=== PATIENT | male | born 1960 | race Caucasian/White ===

== ENCOUNTER 2024-02-24 12:54 | Emergency (ER) | payer MEDICAID ==
[2024-02-24] MEDS ORDERED: Sodium Chloride 0.9% 10 ML Syringe FLUSH PRN (13:01)
[2024-02-24 13:49] LABS: BASOPHILS ABSOLUTE AUTO 0.01 10^3/uL (0.00-0.10); BASOPHILS PERCENT AUTO 0.2 % (0.0-1.0); EOSINOPHILS PERCENT AUTO 2.4 % (1.0-3.0); HEMATOCRIT 36.5 % (40.0-52.0); HEMOGLOBIN 12.6 g/dL (13.0-17.0); IMMATURE GRAN ABSOLUTE AUTO 0.01 10^3/uL (0.00-0.50); IMMATURE GRAN PERCENT AUTO 0.2 % (0.0-5.0); LYMPHOCYTES ABSOLUTE AUTO 1.21 10^3/uL (1.00-4.00); LYMPHOCYTES PERCENT AUTO 28.9 % (20.0-40.0); MEAN CORPUSCULAR HEMOGLOBIN 31.1 pg (27.0-31.0); MEAN CORPUSCULAR HGB CONC 34.5 g/dL (32.0-36.0); MEAN CORPUSCULAR VOLUME 90.1 fL (82.0-92.0); MEAN PLATELET VOLUME 12.1 fL (7.4-10.4); MONOCYTES ABSOLUTE AUTO 0.54 10^3/uL (0.10-0.80); MONOCYTES PERCENT AUTO 12.9 % (2.0-8.0); NEUTROPHILS ABSOLUTE AUTO 2.31 10^3/uL (2.50-7.00); NEUTROPHILS PERCENT AUTO 55.4 % (50.0-70.0); PLATELET COUNT,PLT 70 10^3/uL (150-400); RED BLOOD CELL COUNT 4.05 10^6/uL (4.50-6.00); RED CELL DISTRIBUTION WIDTH 12.2 % (11.5-14.5); WHITE BLOOD CELL COUNT,WBC 4.18 10^3/uL (5.00-10.00)
[2024-02-24 13:52] LABS: APPEARANCE,URINE CLEAR (CLEAR); BILIRUBIN,URINE NEGATIVE (NEGATIVE); COLOR,URINE YELLOW (YELLOW); GLUCOSE,URINE NEGATIVE (NEGATIVE); KETONES,URINE NEGATIVE (NEGATIVE); LEUKOCYTE ESTERASE,URINE NEGATIVE (NEGATIVE); NITRITE,URINE NEGATIVE (NEGATIVE); OCCULT BLOOD,URINE NEGATIVE (NEGATIVE); PROTEIN,URINE NEGATIVE (NEGATIVE); UROBILINOGEN,URINE 0.2 E.U./dL (0.2-1.0)
[2024-02-24 14:02] LABS: AMPHETAMINES SCREEN, URINE NEGATIVE (NEGATIVE); BARBITURATE SCREEN,URINE NEGATIVE (NEGATIVE); BENZODIAZEPINES SCREEN,URINE NEGATIVE (NEGATIVE); COCAINE METABOLITES,URINE NEGATIVE (NEGATIVE); METHADONE SCREEN, URINE NEGATIVE (NEGATIVE); METHAMPHETAMINES SCREEN, URINE NEGATIVE (NEGATIVE); OXYCODONE SCREEN,URINE NEGATIVE (NEGATIVE); PCP SCREEN,URINE NEGATIVE (NEGATIVE); PROPOXYPHENE SCREEN,URINE NEGATIVE (NEGATIVE); TCA SCREEN,URINE POSITIVE (NEGATIVE); THC SCREEN,URINE 50 NG/ML NEGATIVE (NEGATIVE)
[2024-02-24 14:11] LABS: ALANINE AMINOTRANSFERASE,ALT 20 U/L (14-63); ALBUMIN 3.21 g/dL (3.40-5.00); ALKALINE PHOSPHATASE 81 U/L (46-116); AMYLASE 128 U/L (25-125); ANION GAP 14.4 mmol/L (5-15); ASPARTATE AMNIOTRANSFERASE,AST 25 U/L (15-37); BILIRUBIN TOTAL 1.5 mg/dL (0.2-1.0); BLOOD UREA NITROGEN,BUN 24 mg/dL (7-18); CALCIUM 9.3 mg/dL (8.7-10.3); CARBON DIOXIDE,CO2 25.4 mmol/L (21.0-32.0); CHLORIDE,CL 107 mmol/L (98-107); EST CRCL DRUG DOSING (CG) 84.29 mL/min; GLUCOSE RANDOM 137 mg/dL (70-140); LACTIC ACID 2.4 mmol/L (0.4-2.0); LIPASE 29 U/L (16-77); POTASSIUM,K 3.8 mmol/L (3.5-5.1); PROTEIN TOTAL,TP 6.7 g/dL (6.4-8.2); SODIUM,NA 143 mmol/L (136-145)
[2024-02-24 14:15] LABS: ESTIMATED GFR 76 mL/min (>=60)
[2024-02-24 14:24] LABS: B-TYPE NATRIURETIC PEPTIDE,BNP < 5 pg/mL (0-100)
[2024-02-24] MEDS: Sodium Chloride 0.9% 1,000 ML IV SCH (14:26)
== END 2024-02-24 16:40 ==
LOC: KA.ED 12:54
DX: D69.6 Thrombocytopenia, unspecified (principal); E11.40 Type 2 diabetes mellitus with diabetic neuropathy, unspecified; E51.2 Wernicke's encephalopathy; E78.00 Pure hypercholesterolemia, unspecified; I10 Essential (primary) hypertension; E66.9 Obesity, unspecified; Z79.4 Long term (current) use of insulin; Z79.899 Other long term (current) drug therapy; Z79.84 Long term (current) use of oral hypoglycemic drugs; Z68.39 Body mass index [BMI] 39.0-39.9, adult
CPT/HCPCS: 36415; 70450; 71045; 80053; 80305-QW; 81003; 82140; 82150; 83605; 83690; 83880; 84484; 85025; 87040; 93010; 96360; 99284; 99285-25; C1758; J7030

== ENCOUNTER 2024-03-23 10:30 | Emergency (ER) | payer MEDICAID ==
[2024-03-23 11:17] LABS: BASOPHILS ABSOLUTE AUTO 0.01 10^3/uL (0.00-0.10); BASOPHILS PERCENT AUTO 0.2 % (0.0-1.0); EOSINOPHILS ABSOLUTE AUTO 0.02 10^3/uL (0.10-0.30); EOSINOPHILS PERCENT AUTO 0.4 % (1.0-3.0); HEMATOCRIT 38.7 % (40.0-52.0); HEMOGLOBIN 13.8 g/dL (13.0-17.0); IMMATURE GRAN ABSOLUTE AUTO 0.02 10^3/uL (0.00-0.50); IMMATURE GRAN PERCENT AUTO 0.4 % (0.0-5.0); LYMPHOCYTES ABSOLUTE AUTO 0.62 10^3/uL (1.00-4.00); LYMPHOCYTES PERCENT AUTO 12.2 % (20.0-40.0); MEAN CORPUSCULAR HEMOGLOBIN 31.2 pg (27.0-31.0); MEAN CORPUSCULAR HGB CONC 35.7 g/dL (32.0-36.0); MEAN CORPUSCULAR VOLUME 87.6 fL (82.0-92.0); MEAN PLATELET VOLUME 11.8 fL (7.4-10.4); MONOCYTES ABSOLUTE AUTO 0.39 10^3/uL (0.10-0.80); MONOCYTES PERCENT AUTO 7.7 % (2.0-8.0); NEUTROPHILS ABSOLUTE AUTO 4.02 10^3/uL (2.50-7.00); NEUTROPHILS PERCENT AUTO 79.1 % (50.0-70.0); PLATELET COUNT,PLT 66 10^3/uL (150-400); RED BLOOD CELL COUNT 4.42 10^6/uL (4.50-6.00); WHITE BLOOD CELL COUNT,WBC 5.08 10^3/uL (5.00-10.00)
[2024-03-23 11:34] LABS: ALANINE AMINOTRANSFERASE,ALT 21 U/L (14-63); ALBUMIN 3.41 g/dL (3.40-5.00); ALKALINE PHOSPHATASE 87 U/L (46-116); ANION GAP 18.9 mmol/L (5-15); ASPARTATE AMNIOTRANSFERASE,AST 19 U/L (15-37); BILIRUBIN TOTAL 1.3 mg/dL (0.2-1.0); BLOOD UREA NITROGEN,BUN 28 mg/dL (7-18); C-REACTIVE PROTEIN < 0.50 mg/dL (0.00-0.50); CALCIUM 9.8 mg/dL (8.7-10.3); CARBON DIOXIDE,CO2 19.6 mmol/L (21.0-32.0); CHLORIDE,CL 105 mmol/L (98-107); CREATININE 1.29 mg/dL (0.51-1.17); ESTIMATED GFR 63 mL/min (>=60); GLUCOSE RANDOM 204 mg/dL (70-140); POTASSIUM,K 4.5 mmol/L (3.5-5.1); PROTEIN TOTAL,TP 7.3 g/dL (6.4-8.2); SODIUM,NA 139 mmol/L (136-145)
[2024-03-23 12:34] LABS: INR 1.1 (0.9-1.1); PROTHROMBIN TIME 11.6 SEC (9.3-12.2)
[2024-03-23] MEDS: Sodium Chloride 0.9% 1,000 ML IV ONE (13:58)
== END 2024-03-23 14:18 ==
LOC: KA.ED 10:30
DX: E51.2 Wernicke's encephalopathy (principal); R20.9 Unspecified disturbances of skin sensation; E72.20 Disorder of urea cycle metabolism, unspecified; R41.82 Altered mental status, unspecified; I10 Essential (primary) hypertension; E78.00 Pure hypercholesterolemia, unspecified; E11.9 Type 2 diabetes mellitus without complications; Z79.899 Other long term (current) drug therapy; Z79.4 Long term (current) use of insulin; Z79.84 Long term (current) use of oral hypoglycemic drugs
CPT/HCPCS: 36415; 70450; 71045; 80053; 82140; 85025; 85610; 85730; 86140; 99284; 99285; J7030

== ENCOUNTER 2024-05-25 22:04 | Inpatient (IN) | payer MEDICAID ==
[2024-05-25] MEDS: Sodium Chloride 0.9% 10 ML Syringe FLUSH PRN (22:30)
[2024-05-25 22:43] LABS: BASOPHILS ABSOLUTE AUTO 0.02 10^3/uL (0.00-0.10); BASOPHILS PERCENT AUTO 0.4 % (0.0-1.0); EOSINOPHILS ABSOLUTE AUTO 0.09 10^3/uL (0.10-0.30); HEMOGLOBIN 13.7 g/dL (13.0-17.0); IMMATURE GRAN ABSOLUTE AUTO 0.05 10^3/uL (0.00-0.50); IMMATURE GRAN PERCENT AUTO 1.1 % (0.0-5.0); LYMPHOCYTES ABSOLUTE AUTO 1.14 10^3/uL (1.00-4.00); LYMPHOCYTES PERCENT AUTO 25.6 % (20.0-40.0); MEAN CORPUSCULAR HEMOGLOBIN 32.4 pg (27.0-31.0); MEAN CORPUSCULAR HGB CONC 35.1 g/dL (32.0-36.0); MEAN CORPUSCULAR VOLUME 92.2 fL (82.0-92.0); MEAN PLATELET VOLUME 12.2 fL (7.4-10.4); MONOCYTES ABSOLUTE AUTO 0.47 10^3/uL (0.10-0.80); MONOCYTES PERCENT AUTO 10.5 % (2.0-8.0); NEUTROPHILS ABSOLUTE AUTO 2.69 10^3/uL (2.50-7.00); NEUTROPHILS PERCENT AUTO 60.4 % (50.0-70.0); PLATELET COUNT,PLT 97 10^3/uL (150-400); RED BLOOD CELL COUNT 4.23 10^6/uL (4.50-6.00); RED CELL DISTRIBUTION WIDTH 12.7 % (11.5-14.5); WHITE BLOOD CELL COUNT,WBC 4.46 10^3/uL (5.00-10.00)
[2024-05-25] MEDS: Sodium Chloride 0.9% 500 ML IV SCH (22:46)
[2024-05-25 22:49] LABS: APPEARANCE,URINE CLEAR (CLEAR); BILIRUBIN,URINE NEGATIVE (NEGATIVE); COLOR,URINE DARK YELLOW (YELLOW); GLUCOSE,URINE NEGATIVE (NEGATIVE); KETONES,URINE 15 mg/dL (NEGATIVE); LEUKOCYTE ESTERASE,URINE NEGATIVE (NEGATIVE); NITRITE,URINE NEGATIVE (NEGATIVE); OCCULT BLOOD,URINE NEGATIVE (NEGATIVE); PROTEIN,URINE NEGATIVE (NEGATIVE)
[2024-05-25 23:15] LABS: ALANINE AMINOTRANSFERASE,ALT 18 U/L (14-63); ALBUMIN 3.35 g/dL (3.40-5.00); ALKALINE PHOSPHATASE 86 U/L (46-116); ANION GAP 17.9 mmol/L (5-15); ASPARTATE AMNIOTRANSFERASE,AST 14 U/L (15-37); BILIRUBIN TOTAL 1.4 mg/dL (0.2-1.0); BLOOD UREA NITROGEN,BUN 16 mg/dL (7-18); CALCIUM 9.5 mg/dL (8.7-10.3); CARBON DIOXIDE,CO2 21.1 mmol/L (21.0-32.0); CHLORIDE,CL 104 mmol/L (98-107); CREATININE 0.98 mg/dL (0.51-1.17); GLUCOSE RANDOM 169 mg/dL (70-140); SODIUM,NA 139 mmol/L (136-145)
[2024-05-25 23:16] LABS: ESTIMATED GFR 88 mL/min (>=60)
[2024-05-26] MEDS ORDERED: Ondansetron 4 MG Tab.DIS PO PRN (00:03)
[2024-05-26] MEDS ORDERED: Acetaminophen 325 MG Tab PO PRN (00:03)
[2024-05-26 00:11] LABS: HCO3 ARTERIAL,POC 16.9 mmol/L (21-28); O2 SATURATION ARTERIAL,POC 97.5 % (94-98); PCO2 ARTERIAL,POC 29 mmHg (35-48); PH ARTERIAL,POC 7.37 pH (7.35-7.45); PO2 ARTERIAL,POC 98 mmHg (83-108)
[2024-05-26] MEDS: Sodium Chloride 0.9% 1,000 ML IV ONE (00:33)
[2024-05-26] MEDS: metroNIDAZOLE 500 MG Tab PO SCH (00:33)
[2024-05-26] MEDS ORDERED: Glucagon,Human Recombinant 1 MG Vial IM PRN (01:01)
[2024-05-26] MEDS ORDERED: 50% Dextrose in Water 50 ML Syringe IVPUSH PRN (01:01)
[2024-05-26] MEDS: Lactulose Soln 10 GM/15 ML 30 ML UD Cup PO SCH ×4 (01:04→17:48)
[2024-05-26 07:23] LABS: BASOPHILS ABSOLUTE AUTO 0.02 10^3/uL (0.00-0.10); BASOPHILS PERCENT AUTO 0.5 % (0.0-1.0); EOSINOPHILS ABSOLUTE AUTO 0.15 10^3/uL (0.10-0.30); EOSINOPHILS PERCENT AUTO 3.5 % (1.0-3.0); HEMATOCRIT 34.9 % (40.0-52.0); HEMOGLOBIN 12.1 g/dL (13.0-17.0); IMMATURE GRAN ABSOLUTE AUTO 0.07 10^3/uL (0.00-0.50); IMMATURE GRAN PERCENT AUTO 1.6 % (0.0-5.0); LYMPHOCYTES PERCENT AUTO 30.2 % (20.0-40.0); MEAN CORPUSCULAR HEMOGLOBIN 32.4 pg (27.0-31.0); MEAN CORPUSCULAR HGB CONC 34.7 g/dL (32.0-36.0); MEAN CORPUSCULAR VOLUME 93.6 fL (82.0-92.0); MEAN PLATELET VOLUME 11.1 fL (7.4-10.4); MONOCYTES ABSOLUTE AUTO 0.47 10^3/uL (0.10-0.80); MONOCYTES PERCENT AUTO 10.9 % (2.0-8.0); NEUTROPHILS PERCENT AUTO 53.3 % (50.0-70.0); PLATELET COUNT,PLT 63 10^3/uL (150-400); RED BLOOD CELL COUNT 3.73 10^6/uL (4.50-6.00); RED CELL DISTRIBUTION WIDTH 12.6 % (11.5-14.5); WHITE BLOOD CELL COUNT,WBC 4.31 10^3/uL (5.00-10.00)
[2024-05-26 07:41] LABS: ALBUMIN 2.97 g/dL (3.40-5.00); ANION GAP 14.3 mmol/L (5-15); BILIRUBIN TOTAL 1.6 mg/dL (0.2-1.0); CALCIUM 8.9 mg/dL (8.7-10.3); CARBON DIOXIDE,CO2 24.5 mmol/L (21.0-32.0); CREATININE 0.88 mg/dL (0.51-1.17); EST CRCL DRUG DOSING (CG) 105.36 mL/min; INR 1.1 (0.9-1.1); POTASSIUM,K 3.8 mmol/L (3.5-5.1); PROTEIN TOTAL,TP 6.2 g/dL (6.4-8.2); PROTHROMBIN TIME 11.7 SEC (9.3-12.2)
[2024-05-26] MEDS: Insulin Lispro 100 Unit/ML 3 ML KwikPen SUBCUT SCH (08:03)
[2024-05-26] MEDS: Spironolactone 25 MG Tab PO SCH (08:30)
[2024-05-26] MEDS: Famotidine 20 MG Tab PO SCH (08:30)
[2024-05-26] MEDS: Topiramate 25 MG Tab PO SCH (08:30)
[2024-05-26] MEDS: Thiamine 100 MG Tab PO SCH (08:30)
[2024-05-26] MEDS: Folic Acid 1 MG Tab PO SCH (08:30)
[2024-05-26] MEDS: Cyanocobalamin (Vitamin B12) 500 MCG Tab PO SCH (08:30)
[2024-05-26] MEDS: Insulin Glargine,Hum.Rec.Anlog 100 UNIT/ML 3 ML Pen SUBCUT SCH (08:31)
[2024-05-26] MEDS: Ketoconazole 15 GM TUBE TOP SCH (08:31)
[2024-05-26] MEDS: TRINTELLIX 10 MG PO SCH (10:12)
[2024-05-26] MEDS: XIFAXAN 550 MG PO SCH (10:12)
[2024-05-26] MEDS ORDERED: Lactulose Soln 10 GM/15 ML 30 ML UD Cup PO SCH (10:42)
[2024-05-26] MEDS: Lactulose Soln 10 GM/15 ML 30 ML UD Cup PO ONE (14:20)
[2024-05-26] MEDS: Bisacodyl 10 MG Supp RECTAL ONE (14:20)
[2024-05-27 12:27] VITALS: BP 106/49; PULSE 92
== END 2024-05-27 13:21 | disposition home or self-care (01) | DRG 441 ==
LOC: KA.ED 22:04 → KA.MS 05-26 00:03
PROVIDERS: ADMIT Physician Assistant Medical; ATTEND Hospitalist
DX: K76.82 Hepatic encephalopathy (principal); G93.41 Metabolic encephalopathy; K70.31 Alcoholic cirrhosis of liver with ascites; R74.02 Elevation of levels of lactic acid dehydrogenase [LDH]; I10 Essential (primary) hypertension; E11.9 Type 2 diabetes mellitus without complications; E86.0 Dehydration; E66.9 Obesity, unspecified; F41.0 Panic disorder [episodic paroxysmal anxiety]; D64.9 Anemia, unspecified; Z79.891 Long term (current) use of opiate analgesic; E78.00 Pure hypercholesterolemia, unspecified; E11.42 Type 2 diabetes mellitus with diabetic polyneuropathy; Z79.4 Long term (current) use of insulin; Z98.49 Cataract extraction status, unspecified eye; Z79.01 Long term (current) use of anticoagulants; Z79.84 Long term (current) use of oral hypoglycemic drugs; Z79.899 Other long term (current) drug therapy; Z68.35 Body mass index [BMI] 35.0-35.9, adult
CPT/HCPCS: 36415; 36600; 71045; 80053; 81003; 82140; 82803; 82947; 83605; 85025; 85610; 96360; 99284; 99285-25; A9270-GY; C1758; J1815-GY; J3490; J7030; J7040; Q3014

== ENCOUNTER 2024-06-16 05:32 | Emergency (ER) | payer MEDICAID ==
[2024-06-16] MEDS ORDERED: Sodium Chloride 0.9% 10 ML Syringe FLUSH PRN (05:42)
[2024-06-16 05:53] LABS: BASOPHILS ABSOLUTE AUTO 0.02 10^3/uL (0.00-0.10); BASOPHILS PERCENT AUTO 0.5 % (0.0-1.0); EOSINOPHILS ABSOLUTE AUTO 0.09 10^3/uL (0.10-0.30); EOSINOPHILS PERCENT AUTO 2.3 % (1.0-3.0); HEMATOCRIT 35.6 % (40.0-52.0); HEMOGLOBIN 12.7 g/dL (13.0-17.0); IMMATURE GRAN ABSOLUTE AUTO 0.07 10^3/uL (0.00-0.50); IMMATURE GRAN PERCENT AUTO 1.8 % (0.0-5.0); LYMPHOCYTES ABSOLUTE AUTO 0.81 10^3/uL (1.00-4.00); LYMPHOCYTES PERCENT AUTO 20.4 % (20.0-40.0); MEAN CORPUSCULAR HEMOGLOBIN 33.4 pg (27.0-31.0); MEAN CORPUSCULAR HGB CONC 35.7 g/dL (32.0-36.0); MEAN CORPUSCULAR VOLUME 93.7 fL (82.0-92.0); MEAN PLATELET VOLUME 11.5 fL (7.4-10.4); MONOCYTES ABSOLUTE AUTO 0.42 10^3/uL (0.10-0.80); MONOCYTES PERCENT AUTO 10.6 % (2.0-8.0); NEUTROPHILS ABSOLUTE AUTO 2.57 10^3/uL (2.50-7.00); NEUTROPHILS PERCENT AUTO 64.4 % (50.0-70.0); RED CELL DISTRIBUTION WIDTH 12.8 % (11.5-14.5); WHITE BLOOD CELL COUNT,WBC 3.98 10^3/uL (5.00-10.00)
[2024-06-16 06:04] LABS: CARBON DIOXIDE,CO2 18.2 mmol/L (21.0-32.0); CREATININE 0.87 mg/dL (0.51-1.17); EST CRCL DRUG DOSING (CG) 106.57 mL/min; POTASSIUM,K 4.2 mmol/L (3.5-5.1); PROTEIN TOTAL,TP 6.5 g/dL (6.4-8.2)
[2024-06-16 06:14] LABS: PLATELET COUNT,PLT 66 10^3/uL (150-400)
[2024-06-16] MEDS: Ondansetron 4 MG/2 ML SDV IVPUSH ONE (06:17)
[2024-06-16] MEDS: Sodium Chloride 0.9% 1,000 ML IV ONE ×2 (06:20→11:26)
[2024-06-16 06:41] LABS: CORONAVIRUS COVID-19 NAA NEGATIVE (NEGATIVE); INFLUENZA A NAA NEGATIVE (NEGATIVE); INFLUENZA B NAA NEGATIVE (NEGATIVE); RESPIRATORY SYNCYTIAL VIR NAA NEGATIVE (NEGATIVE)
[2024-06-16] MEDS: Insulin Regular, Human 100 Units/ML 10 ML Vial IVPUSH ONE (06:43)
[2024-06-16 07:32] LABS: MAGNESIUM 1.7 mg/dL (1.8-2.4); PHOSPHORUS 4.6 mg/dL (2.6-4.7)
[2024-06-16] MEDS: Insulin Regular in 0.9 % NACL 100 ML IV SCH (07:53)
[2024-06-16 07:54] LABS: HCO3 ARTERIAL,POC 19.1 mmol/L (21-28); O2 SATURATION ARTERIAL,POC 97.8 % (94-98); PCO2 ARTERIAL,POC 32 mmHg (35-48); PH ARTERIAL,POC 7.39 pH (7.35-7.45); PO2 ARTERIAL,POC 101 mmHg (83-108)
[2024-06-16 08:11] LABS: APPEARANCE,URINE CLEAR (CLEAR); BILIRUBIN,URINE NEGATIVE (NEGATIVE); COLOR,URINE YELLOW (YELLOW); GLUCOSE,URINE >=1000 mg/dL (NEGATIVE); KETONES,URINE TRACE mg/dL (NEGATIVE); LEUKOCYTE ESTERASE,URINE NEGATIVE (NEGATIVE); NITRITE,URINE NEGATIVE (NEGATIVE); OCCULT BLOOD,URINE NEGATIVE (NEGATIVE); PROTEIN,URINE NEGATIVE (NEGATIVE)
[2024-06-16] MEDS: Sodium Chloride 0.9% 1,000 ML IV SCH (08:58)
[2024-06-16] MEDS: Lactulose Soln 10 GM/15 ML 30 ML UD Cup PO ONE (11:31)
== END 2024-06-16 14:00 ==
LOC: KA.ED 05:32
DX: E11.65 Type 2 diabetes mellitus with hyperglycemia (principal); E86.0 Dehydration; E51.2 Wernicke's encephalopathy; K76.82 Hepatic encephalopathy; D69.6 Thrombocytopenia, unspecified; E72.20 Disorder of urea cycle metabolism, unspecified; I10 Essential (primary) hypertension; E78.00 Pure hypercholesterolemia, unspecified; E11.42 Type 2 diabetes mellitus with diabetic polyneuropathy; E66.9 Obesity, unspecified; Z79.899 Other long term (current) drug therapy; Z79.84 Long term (current) use of oral hypoglycemic drugs; Z79.4 Long term (current) use of insulin; Z68.36 Body mass index [BMI] 36.0-36.9, adult
CPT/HCPCS: 0241U; 36415; 36600; 71045; 80053; 81003; 82140; 82803; 82947; 83605; 83735; 84100; 84484; 85025; 93010; 96361; 96374; 99284; 99285-25; A9270-GY; J1815-GY; J2405; J7030

== ENCOUNTER 2024-07-06 20:53 | Emergency (ER) | payer MEDICAID ==
[2024-07-06] MEDS: Sodium Chloride 0.9% 10 ML Syringe FLUSH PRN (21:09)
[2024-07-06] MEDS: Sodium Chloride 0.9% 1,000 ML IV ONE ×2 (21:17→22:43)
[2024-07-06 21:30] LABS: BASOPHILS ABSOLUTE AUTO 0.02 10^3/uL (0.00-0.10); BASOPHILS PERCENT AUTO 0.4 % (0.0-1.0); EOSINOPHILS ABSOLUTE AUTO 0.07 10^3/uL (0.10-0.30); EOSINOPHILS PERCENT AUTO 1.4 % (1.0-3.0); HEMATOCRIT 37.7 % (40.0-52.0); HEMOGLOBIN 13.6 g/dL (13.0-17.0); IMMATURE GRAN ABSOLUTE AUTO 0.06 10^3/uL (0.00-0.50); IMMATURE GRAN PERCENT AUTO 1.2 % (0.0-5.0); LYMPHOCYTES PERCENT AUTO 17.6 % (20.0-40.0); MEAN CORPUSCULAR HEMOGLOBIN 33.3 pg (27.0-31.0); MEAN CORPUSCULAR HGB CONC 36.1 g/dL (32.0-36.0); MEAN CORPUSCULAR VOLUME 92.2 fL (82.0-92.0); MEAN PLATELET VOLUME 11.4 fL (7.4-10.4); MONOCYTES ABSOLUTE AUTO 0.65 10^3/uL (0.10-0.80); MONOCYTES PERCENT AUTO 12.7 % (2.0-8.0); NEUTROPHILS PERCENT AUTO 66.7 % (50.0-70.0); PLATELET COUNT,PLT 76 10^3/uL (150-400); RED BLOOD CELL COUNT 4.09 10^6/uL (4.50-6.00); RED CELL DISTRIBUTION WIDTH 12.5 % (11.5-14.5)
[2024-07-06 21:48] LABS: ALANINE AMINOTRANSFERASE,ALT 26 U/L (14-63); ALBUMIN 3.29 g/dL (3.40-5.00); ALKALINE PHOSPHATASE 83 U/L (46-116); ANION GAP 23.1 mmol/L (5-15); ASPARTATE AMNIOTRANSFERASE,AST 17 U/L (15-37); BLOOD UREA NITROGEN,BUN 13 mg/dL (7-18); CALCIUM 9.1 mg/dL (8.7-10.3); CARBON DIOXIDE,CO2 17.9 mmol/L (21.0-32.0); CHLORIDE,CL 100 mmol/L (98-107); CREATININE 0.94 mg/dL (0.51-1.17); ESTIMATED GFR 92 mL/min (>=60); GLUCOSE RANDOM 164 mg/dL (70-140); PROTEIN TOTAL,TP 6.9 g/dL (6.4-8.2); SODIUM,NA 137 mmol/L (136-145)
[2024-07-06 22:07] LABS: APPEARANCE,URINE CLEAR (CLEAR); BILIRUBIN,URINE NEGATIVE (NEGATIVE); COLOR,URINE DARK YELLOW (YELLOW); GLUCOSE,URINE NEGATIVE (NEGATIVE); KETONES,URINE 15 mg/dL (NEGATIVE); LEUKOCYTE ESTERASE,URINE NEGATIVE (NEGATIVE); NITRITE,URINE NEGATIVE (NEGATIVE); OCCULT BLOOD,URINE TRACE-INTACT (NEGATIVE); PH,URINE 5.5 (5.0-9.0); PROTEIN,URINE 30 mg/dL (NEGATIVE); UROBILINOGEN,URINE 0.2 E.U./dL (0.2-1.0)
[2024-07-06 22:18] LABS: BACTERIA,URINE RARE /HPF (NONE TO FEW); EPITHELIAL CELLS,URINE RARE /LPF; HYALINE CASTS,URINE FEW; MUCUS,URINE FEW /LPF (NEGATIVE); RBC,URINE 0-5 /HPF (0-5); WBC,URINE 0-5 /HPF (0-5)
== END 2024-07-07 00:53 ==
LOC: KA.ED 20:53
DX: I95.9 Hypotension, unspecified (principal); E86.0 Dehydration; E72.20 Disorder of urea cycle metabolism, unspecified; E86.1 Hypovolemia; I10 Essential (primary) hypertension; E78.00 Pure hypercholesterolemia, unspecified; E11.40 Type 2 diabetes mellitus with diabetic neuropathy, unspecified; Z79.4 Long term (current) use of insulin; Z79.899 Other long term (current) drug therapy; Z79.84 Long term (current) use of oral hypoglycemic drugs
CPT/HCPCS: 36415; 71045; 80053; 81001; 82140; 83605; 85025; 93010; 96360; 96361; 99284; 99285-25; J3490; J7030; Q3014

== ENCOUNTER 2024-07-08 14:55 | Emergency (ER) | payer MEDICAID ==
[2024-07-08 15:36] LABS: BASOPHILS ABSOLUTE AUTO 0.02 10^3/uL (0.00-0.10); BASOPHILS PERCENT AUTO 0.5 % (0.0-1.0); EOSINOPHILS ABSOLUTE AUTO 0.09 10^3/uL (0.10-0.30); EOSINOPHILS PERCENT AUTO 2.1 % (1.0-3.0); HEMATOCRIT 36.5 % (40.0-52.0); IMMATURE GRAN ABSOLUTE AUTO 0.05 10^3/uL (0.00-0.50); IMMATURE GRAN PERCENT AUTO 1.1 % (0.0-5.0); LYMPHOCYTES ABSOLUTE AUTO 1.04 10^3/uL (1.00-4.00); LYMPHOCYTES PERCENT AUTO 23.7 % (20.0-40.0); MEAN CORPUSCULAR HEMOGLOBIN 33.2 pg (27.0-31.0); MEAN CORPUSCULAR HGB CONC 35.6 g/dL (32.0-36.0); MEAN CORPUSCULAR VOLUME 93.4 fL (82.0-92.0); MEAN PLATELET VOLUME 11.5 fL (7.4-10.4); MONOCYTES ABSOLUTE AUTO 0.56 10^3/uL (0.10-0.80); MONOCYTES PERCENT AUTO 12.8 % (2.0-8.0); NEUTROPHILS ABSOLUTE AUTO 2.63 10^3/uL (2.50-7.00); NEUTROPHILS PERCENT AUTO 59.8 % (50.0-70.0); PLATELET COUNT,PLT 66 10^3/uL (150-400); RED BLOOD CELL COUNT 3.91 10^6/uL (4.50-6.00); RED CELL DISTRIBUTION WIDTH 12.6 % (11.5-14.5); WHITE BLOOD CELL COUNT,WBC 4.39 10^3/uL (5.00-10.00)
[2024-07-08 16:00] LABS: ALANINE AMINOTRANSFERASE,ALT 24 U/L (14-63); ALBUMIN 3.17 g/dL (3.40-5.00); ALKALINE PHOSPHATASE 87 U/L (46-116); ANION GAP 17.6 mmol/L (5-15); ASPARTATE AMNIOTRANSFERASE,AST 16 U/L (15-37); BILIRUBIN TOTAL 2.1 mg/dL (0.2-1.0); BLOOD UREA NITROGEN,BUN 15 mg/dL (7-18); CALCIUM 9.2 mg/dL (8.7-10.3); CARBON DIOXIDE,CO2 22.2 mmol/L (21.0-32.0); CHLORIDE,CL 104 mmol/L (98-107); CREATININE 1.01 mg/dL (0.51-1.17); GLUCOSE RANDOM 221 mg/dL (70-140); POTASSIUM,K 3.8 mmol/L (3.5-5.1); PROTEIN TOTAL,TP 6.6 g/dL (6.4-8.2); SODIUM,NA 140 mmol/L (136-145)
[2024-07-08 16:01] LABS: ESTIMATED GFR 85 mL/min (>=60)
[2024-07-08] MEDS: Sodium Chloride 0.9% 1,000 ML IV ONE (16:20)
[2024-07-08] MEDS: Lactulose Soln 10 GM/15 ML 30 ML UD Cup PO ONE (19:48)
== END 2024-07-08 22:04 ==
LOC: SUPCPDRO 14:55 → KA.ED 14:55
DX: R11.2 Nausea with vomiting, unspecified (principal); K76.82 Hepatic encephalopathy; K72.10 Chronic hepatic failure without coma; I10 Essential (primary) hypertension; E11.40 Type 2 diabetes mellitus with diabetic neuropathy, unspecified; E66.9 Obesity, unspecified; Z79.4 Long term (current) use of insulin; Z79.84 Long term (current) use of oral hypoglycemic drugs; Z79.899 Other long term (current) drug therapy
CPT/HCPCS: 36415; 80053; 82140; 85025; 96360; 96361; 99284; 99284-25; A9270-GY; J7030

== ENCOUNTER 2024-07-15 10:02 | Emergency (ER) | payer MEDICAID ==
[2024-07-15] MEDS: Sodium Chloride 0.9% 1,000 ML IV ONE ×3 (10:13→12:47)
[2024-07-15 10:27] LABS: BASOPHILS ABSOLUTE AUTO 0.02 10^3/uL (0.00-0.10); BASOPHILS PERCENT AUTO 0.4 % (0.0-1.0); EOSINOPHILS ABSOLUTE AUTO 0.15 10^3/uL (0.10-0.30); EOSINOPHILS PERCENT AUTO 2.9 % (1.0-3.0); HEMOGLOBIN 12.8 g/dL (13.0-17.0); IMMATURE GRAN ABSOLUTE AUTO 0.06 10^3/uL (0.00-0.50); IMMATURE GRAN PERCENT AUTO 1.2 % (0.0-5.0); LYMPHOCYTES ABSOLUTE AUTO 1.49 10^3/uL (1.00-4.00); LYMPHOCYTES PERCENT AUTO 28.6 % (20.0-40.0); MEAN CORPUSCULAR HEMOGLOBIN 33.1 pg (27.0-31.0); MEAN CORPUSCULAR HGB CONC 35.6 g/dL (32.0-36.0); MEAN PLATELET VOLUME 10.9 fL (7.4-10.4); MONOCYTES ABSOLUTE AUTO 0.67 10^3/uL (0.10-0.80); MONOCYTES PERCENT AUTO 12.9 % (2.0-8.0); NEUTROPHILS ABSOLUTE AUTO 2.82 10^3/uL (2.50-7.00); PLATELET COUNT,PLT 66 10^3/uL (150-400); RED BLOOD CELL COUNT 3.87 10^6/uL (4.50-6.00); RED CELL DISTRIBUTION WIDTH 12.7 % (11.5-14.5); WHITE BLOOD CELL COUNT,WBC 5.21 10^3/uL (5.00-10.00)
[2024-07-15 10:43] LABS: ALANINE AMINOTRANSFERASE,ALT 20 U/L (14-63); ALBUMIN 3.03 g/dL (3.40-5.00); ALKALINE PHOSPHATASE 85 U/L (46-116); ANION GAP 16.6 mmol/L (5-15); ASPARTATE AMNIOTRANSFERASE,AST 14 U/L (15-37); BLOOD UREA NITROGEN,BUN 28 mg/dL (7-18); CALCIUM 9.3 mg/dL (8.7-10.3); CARBON DIOXIDE,CO2 24.1 mmol/L (21.0-32.0); CHLORIDE,CL 104 mmol/L (98-107); CREATININE 1.65 mg/dL (0.51-1.17); GLUCOSE RANDOM 135 mg/dL (70-140); POTASSIUM,K 3.7 mmol/L (3.5-5.1); PROTEIN TOTAL,TP 6.4 g/dL (6.4-8.2); SODIUM,NA 141 mmol/L (136-145)
[2024-07-15 10:44] LABS: ESTIMATED GFR 47 mL/min (>=60)
[2024-07-15] MEDS: Sodium Chloride 0.9% 1,000 ML ONE (11:15)
[2024-07-15] MEDS: Lactulose Soln 10 GM/15 ML 30 ML UD Cup PO ONE (13:03)
[2024-07-15] MEDS ORDERED: Albumin Human 25 GM in Premix Bag 1 BAG IV ONE (13:18)
[2024-07-15] MEDS: Sodium Chloride 0.9% 1,000 ML IV SCH (13:52)
== END 2024-07-15 14:45 ==
LOC: KA.ED 10:02
DX: E72.20 Disorder of urea cycle metabolism, unspecified (principal); K70.30 Alcoholic cirrhosis of liver without ascites; R13.10 Dysphagia, unspecified; R41.0 Disorientation, unspecified; R53.1 Weakness; E86.1 Hypovolemia; I10 Essential (primary) hypertension; E78.00 Pure hypercholesterolemia, unspecified; E66.9 Obesity, unspecified; E11.9 Type 2 diabetes mellitus without complications; Z91.048 Other nonmedicinal substance allergy status; Z79.4 Long term (current) use of insulin; Z79.899 Other long term (current) drug therapy; Z68.37 Body mass index [BMI] 37.0-37.9, adult
CPT/HCPCS: 36415; 73030-LT; 80053; 82140; 83605; 85025; 96360; 96361; 99284; 99285-25; A9270-GY; J7030

== ENCOUNTER 2024-07-23 10:09 | Emergency (ER) | payer MEDICAID ==
[2024-07-23] MEDS ORDERED: Sodium Chloride 0.9% 10 ML Syringe FLUSH PRN (10:23)
[2024-07-23 10:35] LABS: BASOPHILS ABSOLUTE AUTO 0.04 10^3/uL (0.00-0.10); BASOPHILS PERCENT AUTO 0.9 % (0.0-1.0); EOSINOPHILS ABSOLUTE AUTO 0.21 10^3/uL (0.10-0.30); EOSINOPHILS PERCENT AUTO 4.6 % (1.0-3.0); HEMATOCRIT 34.4 % (40.0-52.0); HEMOGLOBIN 12.1 g/dL (13.0-17.0); IMMATURE GRAN ABSOLUTE AUTO 0.03 10^3/uL (0.00-0.50); IMMATURE GRAN PERCENT AUTO 0.7 % (0.0-5.0); LYMPHOCYTES ABSOLUTE AUTO 1.28 10^3/uL (1.00-4.00); LYMPHOCYTES PERCENT AUTO 28.1 % (20.0-40.0); MEAN CORPUSCULAR HEMOGLOBIN 32.6 pg (27.0-31.0); MEAN CORPUSCULAR HGB CONC 35.2 g/dL (32.0-36.0); MEAN CORPUSCULAR VOLUME 92.7 fL (82.0-92.0); MEAN PLATELET VOLUME 10.5 fL (7.4-10.4); MONOCYTES ABSOLUTE AUTO 0.52 10^3/uL (0.10-0.80); MONOCYTES PERCENT AUTO 11.4 % (2.0-8.0); NEUTROPHILS ABSOLUTE AUTO 2.47 10^3/uL (2.50-7.00); NEUTROPHILS PERCENT AUTO 54.3 % (50.0-70.0); PLATELET COUNT,PLT 75 10^3/uL (150-400); RED BLOOD CELL COUNT 3.71 10^6/uL (4.50-6.00); RED CELL DISTRIBUTION WIDTH 13.3 % (11.5-14.5); WHITE BLOOD CELL COUNT,WBC 4.55 10^3/uL (5.00-10.00)
[2024-07-23 10:57] LABS: ALANINE AMINOTRANSFERASE,ALT 21 U/L (14-63); ALBUMIN 3.44 g/dL (3.40-5.00); ALKALINE PHOSPHATASE 90 U/L (46-116); ANION GAP 16.1 mmol/L (5-15); ASPARTATE AMNIOTRANSFERASE,AST 15 U/L (15-37); BILIRUBIN TOTAL 2.6 mg/dL (0.2-1.0); BLOOD UREA NITROGEN,BUN 22 mg/dL (7-18); CARBON DIOXIDE,CO2 23.3 mmol/L (21.0-32.0); CHLORIDE,CL 110 mmol/L (98-107); CREATININE 1.24 mg/dL (0.51-1.17); GLUCOSE RANDOM 198 mg/dL (70-140); POTASSIUM,K 3.4 mmol/L (3.5-5.1); PROTEIN TOTAL,TP 6.7 g/dL (6.4-8.2); SODIUM,NA 146 mmol/L (136-145)
[2024-07-23 10:59] LABS: ESTIMATED GFR 66 mL/min (>=60)
[2024-07-23] MEDS: Sodium Chloride 0.9% 1,000 ML IV ONE (11:09)
[2024-07-23 13:47] VITALS: BP 95/75; PULSE 94
== END 2024-07-23 14:03 ==
LOC: KA.ED 10:09
DX: K70.30 Alcoholic cirrhosis of liver without ascites (principal); E86.0 Dehydration; K76.82 Hepatic encephalopathy; E78.00 Pure hypercholesterolemia, unspecified; I10 Essential (primary) hypertension; E11.21 Type 2 diabetes mellitus with diabetic nephropathy; E66.9 Obesity, unspecified; Z68.35 Body mass index [BMI] 35.0-35.9, adult; Z79.4 Long term (current) use of insulin; Z79.899 Other long term (current) drug therapy; Z91.048 Other nonmedicinal substance allergy status
CPT/HCPCS: 36415; 80053; 82140; 83605; 85025; 99285; J7030

== ENCOUNTER 2024-07-26 18:22 | Emergency (ER) | payer MEDICAID ==
[2024-07-26] MEDS ORDERED: Sodium Chloride 0.9% 10 ML Syringe FLUSH PRN (18:29)
[2024-07-26] MEDS: Sodium Chloride 0.9% 1,000 ML IV ONE ×2 (19:19→20:48)
== END 2024-07-26 21:30 ==
LOC: KA.ED 18:22
DX: G93.41 Metabolic encephalopathy (principal); E86.0 Dehydration; I10 Essential (primary) hypertension; E78.00 Pure hypercholesterolemia, unspecified; E11.40 Type 2 diabetes mellitus with diabetic neuropathy, unspecified; E66.9 Obesity, unspecified; Z79.899 Other long term (current) drug therapy; Z79.4 Long term (current) use of insulin; Z79.84 Long term (current) use of oral hypoglycemic drugs; Z91.09 Other allergy status, other than to drugs and biological substances
CPT/HCPCS: 96360; 96361; 99284; 99285-25; J7030

== ENCOUNTER 2024-07-29 11:57 | Emergency (ER) | payer MEDICAID ==
[2024-07-29] MEDS ORDERED: Sodium Chloride 0.9% 10 ML Syringe FLUSH PRN (12:00)
[2024-07-29] MEDS ORDERED: Naloxone 0.4 MG/ML SDV IVPUSH PRN (12:01)
[2024-07-29 12:18] LABS: BASOPHILS ABSOLUTE AUTO 0.03 10^3/uL (0.00-0.10); BASOPHILS PERCENT AUTO 0.5 % (0.0-1.0); EOSINOPHILS ABSOLUTE AUTO 0.27 10^3/uL (0.10-0.30); EOSINOPHILS PERCENT AUTO 4.9 % (1.0-3.0); HEMATOCRIT 34.8 % (40.0-52.0); HEMOGLOBIN 12.6 g/dL (13.0-17.0); IMMATURE GRAN ABSOLUTE AUTO 0.02 10^3/uL (0.00-0.50); IMMATURE GRAN PERCENT AUTO 0.4 % (0.0-5.0); LYMPHOCYTES ABSOLUTE AUTO 1.53 10^3/uL (1.00-4.00); LYMPHOCYTES PERCENT AUTO 27.9 % (20.0-40.0); MEAN CORPUSCULAR HEMOGLOBIN 33.2 pg (27.0-31.0); MEAN CORPUSCULAR HGB CONC 36.2 g/dL (32.0-36.0); MEAN CORPUSCULAR VOLUME 91.6 fL (82.0-92.0); MEAN PLATELET VOLUME 10.5 fL (7.4-10.4); MONOCYTES PERCENT AUTO 12.8 % (2.0-8.0); NEUTROPHILS ABSOLUTE AUTO 2.94 10^3/uL (2.50-7.00); NEUTROPHILS PERCENT AUTO 53.5 % (50.0-70.0); PLATELET COUNT,PLT 64 10^3/uL (150-400); RED CELL DISTRIBUTION WIDTH 13.3 % (11.5-14.5); WHITE BLOOD CELL COUNT,WBC 5.49 10^3/uL (5.00-10.00)
[2024-07-29] MEDS: HYDROmorphone 1 MG/ML Syringe IVPUSH ONE (12:20)
[2024-07-29 12:33] LABS: ALANINE AMINOTRANSFERASE,ALT 20 U/L (14-63); ALBUMIN 3.49 g/dL (3.40-5.00); ALKALINE PHOSPHATASE 103 U/L (46-116); AMYLASE 89 U/L (25-125); ANION GAP 20.8 mmol/L (5-15); ASPARTATE AMNIOTRANSFERASE,AST 26 U/L (15-37); BILIRUBIN TOTAL 4.9 mg/dL (0.2-1.0); BLOOD UREA NITROGEN,BUN 28 mg/dL (7-18); CALCIUM 9.3 mg/dL (8.7-10.3); CARBON DIOXIDE,CO2 20.3 mmol/L (21.0-32.0); CHLORIDE,CL 112 mmol/L (98-107); CREATININE 1.28 mg/dL (0.51-1.17); GLUCOSE RANDOM 165 mg/dL (70-140); LIPASE 24 U/L (16-77); POTASSIUM,K 3.1 mmol/L (3.5-5.1); PROTEIN TOTAL,TP 6.8 g/dL (6.4-8.2); SODIUM,NA 150 mmol/L (136-145)
[2024-07-29 12:35] LABS: ESTIMATED GFR 64 mL/min (>=60)
[2024-07-29] MEDS: Sodium Chloride 0.9% 1,000 ML IV ONE ×2 (12:35→13:45)
[2024-07-29] MEDS: Ondansetron 4 MG/2 ML SDV IVPUSH ONE (12:36)
== END 2024-07-29 20:55 ==
LOC: KA.ED 11:57
DX: K70.30 Alcoholic cirrhosis of liver without ascites (principal); R53.1 Weakness; G93.40 Encephalopathy, unspecified; E86.1 Hypovolemia; E72.20 Disorder of urea cycle metabolism, unspecified; E11.65 Type 2 diabetes mellitus with hyperglycemia; I10 Essential (primary) hypertension; E78.00 Pure hypercholesterolemia, unspecified; E66.9 Obesity, unspecified; E11.9 Type 2 diabetes mellitus without complications; Z68.37 Body mass index [BMI] 37.0-37.9, adult; Z91.048 Other nonmedicinal substance allergy status; Z79.899 Other long term (current) drug therapy
CPT/HCPCS: 36415; 80053; 82140; 82150; 83690; 85025; 96361; 96374; 96375; 99284; 99284-25; J1170; J2405; J7030